=== PATIENT | female | born 1975 | race Caucasian/White ===

== ENCOUNTER → 2017-05-05 | Outpatient (CLI) | payer BC ==
[~2017-05-05] VITALS: Ht 162.6 cm; Wt 61.2 kg
[~2017-05-05] MED LIST: FLAGYL500 MG PO
== END | disposition home or self-care (01) ==
LOC: AMB 12:46
DX: K63.3 Ulcer of intestine (principal); K52.9 Noninfective gastroenteritis and colitis, unspecified; K92.1 Melena; Z88.2 Allergy status to sulfonamides; Z82.49 Family history of ischemic heart disease and other diseases of the circulatory system
CPT/HCPCS: 88305; J2250